=== PATIENT | female | born 1975 | race Caucasian/White ===

== ENCOUNTER 2018-08-25 16:19 | Inpatient (IN) ==
--- NOTE | 2018-08-25 17:42 | PROVIDER DOCUMENTATION ---
This chart was entered by Ashley Ross Scribe, acting as scribe for David Cates MD. HPI-Respiratory General - General Chief Complaint: Shortness of Breath Stated Complaint: SOB Time Seen by Provider: 08/25/18 17:27 Source: patient Allergies/Adverse Reactions: Patient Allergies Allergy/AdvReac Type Severity Reaction Status Date / Time acetaminophen Allergy HIVES Verified 08/25/18 17:11 [From Darvocet-N] codeine Allergy HIVES Verified 08/25/18 17:11 hydromorphone HCl * Allergy HIVES Verified 08/25/18 17:11 [From Dilaudid] meperidine HCl * Allergy HIVES Verified 08/25/18 17:11 [From Demerol] morphine Allergy HIVES Verified 08/25/18 17:11 oxycodone [From Percocet] Allergy HIVES Verified 08/25/18 17:11 propoxyphene napsylate * Allergy HIVES Verified 08/25/18 17:11 [From Darvocet-N] Home Medications: Home Medication List Medication Instructions Recorded Confirmed Last Taken Type Gabapentin 800 mg PO BID 06/10/14 08/25/18 08/25/18 History Levothyroxine [Synthroid] 100 microgm PO DAILY 06/10/14 08/25/18 08/25/18 History Clonazepam [Klonopin] 1 mg PO DAILY 06/28/18 08/25/18 08/25/18 History Hydrocodone Bit/Acetaminophen 1 tab PO QAM 06/28/18 08/25/18 08/25/18 History [Hydrocodon-Acetaminophn 10-325] Clonazepam [Klonopin] 0.5 mg PO HS 08/25/18 08/25/18 Unknown History Hydrocodone/Acetaminophen [Sylmar 0.5 tab PO QHS 08/25/18 08/25/18 Unknown History 10-325 Tablet] Omeprazole [Prilosec] 40 mg PO QPM 08/25/18 08/27/18 Unknown History - History of Present Illness-Resp Nature of Presenting Problem: 43 y/o female presents to ED with SOB, constipation, and abdominal swelling onset 2 months ago. Pt is alert and oriented. Quality of Pain: reports: none Severity in ED: reports: moderate, severe Onset/Duration: reports: other (2 months ago) Timing: reports: still present Context: reports: other Exposure: reports: unknown cause Cough Quality/Degree: reports: no cough Episode Frequency: no prior episodes Current Respiratory Medication Therapy: Initiated see nurses note Modifying Factors: improves with: nothing Associated Symptoms: reports: shortness of breath, short of breath, other (constipation, abdominal swelling) Similar Symptoms Previously?: No Recently seen or treated by another doctor?: No Review of Systems - Adult - REVIEW OF SYSTEMS - ADULT Constitutional: denies: chills, fever Eyes: reports: no symptoms reported Ears, Nose, Mouth & Throat: reports: no symptoms reported Cardiovascular: denies: chest pain, palpitations Respiratory: reports: shortness of breath. denies: cough Gastrointestinal: reports: constipation, other (abdominal swelling). denies: abdominal pain, diarrhea, nausea, vomiting Genitourinary: reports: no symptoms reported Musculoskeletal: denies: back pain, joint pain Integumentary: reports: no symptoms reported Neurological: denies: dizziness/vertigo, seizure Psychiatric: reports: no symptoms reported Endocrine: reports: no symptoms reported Hematologic/Lymphatic: reports: no symptoms reported Allergic/Immunologic: reports: no symptoms reported All Other Systems: Reviewed and Negative Past History - Adult - PAST MEDICAL HISTORY-ADULT Review of Records: reports: Old Records Reviewed, Nursing Assessment Review, Medications Reviewed Major Childhood Illnesses: reports: denies history Cardiovascular: reports: denies history Respiratory: reports: denies history Gastrointestinal: reports: liver disease (cirrhosis), other (esophageal varicies) Obstetrical/Gynecological: reports: denies history Genitourinary: reports: denies history Musculoskeletal: reports: chronic pain, intervertebral disc disease, neck/back injury, other (back issues) Neurological: reports: denies history Psychiatric: reports: anxiety Endocrine/Immune: reports: thyroid disorder (hypo) Other Conditions: reports: denies history - PRIOR SURGERIES/PROCEDURES Surgical/Procedure History: reports: appendectomy, cholecystectomy, hysterectomy , orthopedic (extremity) (carpal tunnel) - IMMUNIZATION STATUS Childhood Immunizations: See Nurse Assessment Flu Vaccine: See Nurse Assessment - FAMILY HISTORY Family History: reviewed, not pertinent - SOCIAL HISTORY Smoking: less than 1 pack/day Provider spent 3-5 mins advising pt. on dangers of tobacco.: Discussed manners to quit use, and f/u contacts for add'l counseling. Substance Use: none/never Alcohol Use Frequency: never Living Situation: family Physical Exam-General - PHYSICAL EXAM-ADULT Initial Vital Signs Reviewed: Yes - CONSTITUTIONAL General Appearance: alert, no apparent distress, obese - EYES Eyes: PERRL/EOMI, pink conjunctivae - HEAD, EARS, NOSE, MOUTH & THROAT HENMT: normocephalic/atraumatic, moist mucous membranes, normal ENT inspection - NECK Neck: non-tender, full range of motion - RESPIRATORY Respiratory: chest non-tender, lungs clear, decreased breath sounds (in R base) - CARDIOVASCULAR Cardiovascular: normal peripheral pulses, regular rate, rhythm - GASTROINTESTINAL (ABDOMEN) Abdominal Exam: normal bowel sounds, non tender, soft, distended, other (peau d'orange to abdomen; pitting edema of abdomen) - MUSCULOSKELETAL Back Exam: normal inspection, no CVA tenderness Extremity: normal range of motion, non-tender, normal gait, swelling (2+ pitting edema of bilateral lower extremities) - SKIN Integumentary: warm/dry, swelling (2+ pitting edema of bilateral lower extremities; pitting edema of abdomen), other (spider angioma to torsol; peau d'orange to abdomen) - NEUROLOGIC Neurologic: grossly normal - PSYCHIATRIC Psych/Mental Status: normal mood/affect, normal thought content, normal thought process, oriented x 3 - HEART Score HEART Score: History: Slightly Suspicious HEART Score: Age: < or = 45 Years HEART Score: Risk Factors for Atherosclerotic Disease: 1 or 2 Risk Factors Progress - PLAN OF CARE/RESULTS Progress/Plan/Lab Results: Orders Category Date Time Status Admit - [facility] Routine AdmDCTranf 08/25/18 23:15 Active Activity - Bed Rest with BRP ORDERED Care 08/25/18 23:15 Active Neurological Check Q4H Care 08/25/18 23:15 Active Saline Loc DIRECTED Care 08/25/18 23:15 Completed Vital Signs Order ORDERED Care 08/25/18 23:15 Completed Z-Document. for Tele Applied ORDERED Care 08/25/18 23:15 Completed Heart Healthy Diet Diet 08/25/18 23:[address] ABD/PELVIS W/PO AND IV CON [CT] Stat Exams 08/25/18 18:37 Completed US ABD PARACENTESIS W S/I [US] Routine Exams 08/26/18 06:00 Completed acute [FLAT/UPRIGHT ABD/1 VIEW CHEST] [RAD] Urgent Exams 08/25/18 18:22 Completed ABG [RESP] Routine Lab 08/25/18 17:39 Completed AMMONIA [CHEM] Stat Lab 08/25/18 20:22 Completed CBC WITH DIFF [HEME] DAILY Lab 08/26/18 05:55 Completed CBC WITH DIFF [HEME] DAILY Lab 08/27/18 05:41 Completed CBC WITH ELECTRONIC DIFF [HEME] Stat Lab 08/25/18 16:48 Completed COMPREHENSIVE METABOLIC PANEL [CHEM] DAILY Lab 08/26/18 05:55 Completed COMPREHENSIVE METABOLIC PANEL [CHEM] DAILY Lab 08/27/18 05:41 Completed COMPREHENSIVE METABOLIC PANEL [CHEM] DAILY Lab 08/28/18 05:57 Completed COMPREHENSIVE METABOLIC PANEL [CHEM] Stat Lab 08/25/18 16:48 Completed PTT [COAG] Stat Lab 08/25/18 16:48 Completed Furosemide [Lasix] Med 08/26/18 09:00 Discontinued 40 mg IV DAILY Lactulose Med 08/25/18 23:15 Discontinued 30 ml PO BID Levothyroxine [Synthroid] Med 08/26/18 07:00 Active 100 microgm PO DAILY@0700 Ondansetron [Zofran] Med 08/25/18 23:15 Active 4 mg IV Q4H PRN PRN Rifaximin [Xifaxan] Med 08/25/18 23:15 Discontinued 550 mg PO BID Oxygen Device Routine Oth 08/25/18 23:15 Completed Telemetry [OM.EQ] Routine Oth 08/25/18 23:15 Active EKG [EKG] Routine Ther 08/25/18 17:39 Ordered Transfer/Admit Order [TRANSFER] Routine Transfer 08/25/18 22:04 Completed Result Diagrams: 08/28/18 05:57 08/28/18 05:57 - CONSULTS/PCP/HOSPITALIST Notification #1 *Consult/PCP/Hospitalist*: Dr. Bermeo Time Discussed: 17:41 Consult Disposition: Admit Departure - Departure Date of Disposition Decision: 08/25/18 Time of Disposition Decision: 21:52 DIAGNOSIS: Ascites, Shortness of breath Disposition: ADMITTED INPATIENT 09 Certified Medical Emergency: Emergent Condition: Stable - Critical Care Note This patient required my direct & personal management of CC.: Yes Total Time (mins): 30 Critical Care Statement: This patient required my direct personal management to treat or rule out processes, the absence of which, could potentiallly result in sudden, clinically significant life or limb threatening deterioration. Attestation - Physician/ [facility] Attestation Patient care was provided by Advanced Practice Provider:: No The physician spent face to face time with patient:: Yes Advanced Practice Provider documentation review:: Supervising physician onsite and consulted in the evaluation and care of this patient. The physician did have a face to face encounter with the patient. This chart was documented by the indicated scribe, (Ashley Ross, Venessa) and accurately reflects the services I performed and decisions made by me, David Cates MD, as attested by the provider's signature.
[2018-08-25 17:44] LABS: BASO# 0.02 X1000 (0.0-0.2); BASO% 0.4 % (0.0-0.8); EOS# 0.12 X1000 (0.0-0.7); EOS% 2.1 % (0.0-10.0); HEMATOCRIT 37.2 % (37.0-47.0); HEMOGLOBIN 12.1 g/dL (12.0-16.0); IMM GRAN# 0.01 X1000 (0.0-0.04); IMM GRAN% 0.2 % (0.0-0.5); LYMPH# 1.02 X1000 (1.2-3.4); LYMPH% 18.1 % (20.5-51.1); MCH 31.5 PG (27-31); MCHC 32.5 g/dL (33-37); MCV 96.9 FL (81-99); MONO# 0.57 X1000 (0.11-0.59); MONO% 10.1 % (1.7-9.3); MPV 11.2 FL (7.4-10.4); NEUT% 69.1 % (42.2-75.2); PLT 107 X1000 (130-400); RBC 3.84 XMIL (4.2-5.4); WBC 5.64 X1000 (4.8-10.8)
[2018-08-25 17:57] LABS: BLOOD TYPE ARTERIAL; HCO3-(ACT) 27.1 mmoll (20.0-26.0); O2(CT) 16.7 mL/dL (15.0-23.0); O2HB 91.3 % (95.0-99.0); PO2(98.6) 74 mmHg (60-100); SAMPLE BLOOD; SAO2 96.9 % (95.0-100.0); pH(98.6) 7.35 (7.35-7.45)
[2018-08-25 18:00] LABS: ALLEN TEST YES; MODALITY CANNULA
[2018-08-25 18:01] LABS: PCO2(98.6) 54 mmHg (35-45)
[2018-08-25 18:26] LABS: AGAP 7; ALBUMIN 2.7 g/dL (3.5-5.0); ALKALINE PHOSPHATASE 143 U/L (32-104); BUN 13 mg/dL (8-22); CALCIUM 8.2 mg/dL (8.8-10.2); CHLORIDE 102 mmol/L (98-107); COSMO 275; CREATININE 0.4 mg/dL (0.5-0.9); ESTIMATED GFR > 60; GLUCOSE 158 mg/dL (70-104); GOT 42 U/L (10-30); GPT 19 U/L (10-36); POTASSIUM 3.8 mmol/L (3.5-5.1); SODIUM 136 mmol/L (136-145); TCO2 27 mmol/L (25-35)
--- NOTE | 2018-08-25 20:15 | Diag Imaging Result Doc PS360 ---
EXAM: FLAT/UPRIGHT ABD/1 VIEW CHEST INDICATION: swelling, dyspnea TECHNIQUE: 4 views COMPARISON: 06/28/2018 FINDINGS: There are nonspecific bowel gas and stool patterns. There is no obstructive bowel pattern. There is no evidence of large volume free abdominal gas. There is no evidence of organomegaly. Lung volumes are very low similar to the previous study. There is subsegmental atelectasis at both lung bases. There is no well-defined pleural fluid collection or pneumothorax. Cardiac silhouette is unremarkable. Central vasculature is mildly prominent which may be due to vascular crowding from poor inspiration versus mild pulmonary venous congestion. IMPRESSION: 1.Nonspecific abdomen. 2.Very low lung volumes with bibasilar atelectasis and mild pulmonary venous congestion versus vascular crowding from the low lung volumes. Electronically signed by Miki Pierre 08/25/2018 8:13 PM
--- NOTE | 2018-08-25 21:56 | Diag Imaging Result Doc PS360 ---
EXAM: CT ABD/PELVIS W/PO AND IV CON INDICATION: abdomen pain TECHNIQUE: This exam was performed using automated exposure control, adjustment of mA or kV according to patient size, and/or use of iterative reconstruction technique. COMPARISON: None. FINDINGS: There is atelectasis at both lung bases, more prominent on the right. There is large volume ascites. There has been a prior cholecystectomy. The liver is extremely heterogeneous and exhibits a very nodular contour indicating cirrhosis. There are numerous ill-defined hypodense nodular foci throughout the liver parenchyma. This may simply be due to the cirrhosis with multiple regenerative nodules. Continued surveillance is recommended, however. Contrast-enhanced MRI may be helpful. The spleen is enlarged measuring up to 16 cm in the greatest axial dimension. There are somewhat prominent varices at the splenic hilum consistent with portal hypertension. The pancreas, adrenal glands, kidneys, and urinary bladder are grossly unremarkable. There has been a prior hysterectomy. There has reportedly been a prior appendectomy. The remainder of the GI tract is essentially unremarkable. There is degenerative disc disease at L5-S1. The bony structures are grossly intact. IMPRESSION: 1.Large volume ascites. 2.Cirrhotic liver. Please see above discussion. 3.Splenomegaly. 4.Atelectasis at the lung bases. Electronically signed by Miki Pierre 08/25/2018 9:53 PM
[2018-08-25] MEDS ORDERED: ZOFRAN IV PRN (23:15)
[2018-08-25] MEDS: LACTULOSE PO SCH (23:45)
[2018-08-25] MEDS: XIFAXAN PO SCH (23:45)
[2018-08-26] MEDS: SYNTHROID PO SCH (06:02)
[2018-08-26 06:51] LABS: AGAP 4; ALBUMIN 2.3 g/dL (3.5-5.0); ALKALINE PHOSPHATASE 139 U/L (32-104); BUN 11 mg/dL (8-22); CHLORIDE 104 mmol/L (98-107); COSMO 274; CREATININE 0.4 mg/dL (0.5-0.9); ESTIMATED GFR > 60; GLUCOSE 142 mg/dL (70-104); GOT 38 U/L (10-30); GPT 16 U/L (10-36); POTASSIUM 4.2 mmol/L (3.5-5.1); SODIUM 136 mmol/L (136-145); TCO2 28 mmol/L (25-35); TOTAL PROTEIN 6.3 g/dL (6.3-8.3)
[2018-08-26 07:32] LABS: BASO# 0.01 X1000 (0.0-0.2); BASO% 0.2 % (0.0-0.8); EOS# 0.13 X1000 (0.0-0.7); EOS% 3.2 % (0.0-10.0); HEMATOCRIT 34.9 % (37.0-47.0); HEMOGLOBIN 11.2 g/dL (12.0-16.0); IMM GRAN# 0.01 X1000 (0.0-0.04); IMM GRAN% 0.2 % (0.0-0.5); LYMPH# 0.74 X1000 (1.2-3.4); MCH 31.2 PG (27-31); MCHC 32.1 g/dL (33-37); MCV 97.2 FL (81-99); MONO# 0.61 X1000 (0.11-0.59); MONO% 14.8 % (1.7-9.3); NEUT# 2.62 X1000 (1.4-6.5); NEUT% 63.6 % (42.2-75.2); PLT 82 X1000 (130-400); RBC 3.59 XMIL (4.2-5.4); RDW 17.7 % (11.5-14.5); WBC 4.12 X1000 (4.8-10.8)
[2018-08-26 07:59] LABS: OCCULT BLOOD 1 POSITIVE (NEGATIVE)
[2018-08-26] MEDS ORDERED: LASIX IV SCH (09:00)
[2018-08-26] MEDS: XIFAXAN PO SCH (09:12)
[2018-08-26] MEDS: LACTULOSE PO SCH (09:13)
[2018-08-26] MEDS ORDERED: ALDACTONE PO SCH (12:15)
[2018-08-26] MEDS ORDERED: OXY IR PO PRN (12:21)
[2018-08-26] MEDS ORDERED: MORPHINE IR PO PRN (12:26)
--- NOTE | 2018-08-26 12:57 | Diag Imaging Result Doc PS360 ---
EXAM: US ABD PARACENTESIS W S/I HISTORY: ascites TECHNIQUE: Localization for a paracentesis COMPARISON: None. FINDINGS: Abdominal ascites present in each of the four quadrants. The largest pocket was in the right lower quadrant. This area was marked for a paracentesis to be performed by the referring physician. Electronically signed by Phil Tan 08/26/2018 12:54 PM
[2018-08-26 13:10] LABS: INR 1.35; PROTIME 17.4 Seconds (11.0-16.0)
[2018-08-26] MEDS: NORCO-7.5 PO PRN (13:52)
[2018-08-26] MEDS ORDERED: XYLOCAINE-MPF 2% ONE (14:34)
[2018-08-26] MEDS ORDERED: VITAMIN K SUBQ ONE (15:23)
[2018-08-26] MEDS ORDERED: NUBAIN IV PRN (15:38)
--- NOTE | 2018-08-26 16:46 | Diag Imaging Result Doc PS360 ---
EXAM: CHEST-PORTABLE HISTORY: dyspnea TECHNIQUE: Chest single view COMPARISON: 08/25/2018 FINDINGS: Poor inspiratory effort. No cardiomegaly. There are increased interstitial markings in the lower lungs. Questionable trace pleural fluid. IMPRESSION: No interval improvement. Electronically signed by Phil Tan 08/26/2018 4:43 PM
--- NOTE | 2018-08-26 18:56 | PROGRESS NOTE ---
DATE: 08/26/2018 SUBJECTIVE: Patient has no major complaints. OBJECTIVE: Vital Signs: Blood pressure is 113/58, heart rate of 89, respiratory rate of 18, temperature 99.2, 98 percent on 3 L. General: She seems more awake, alert, not as lethargic. Cardiovascular: Regular rate and rhythm. Pulmonary: Diminished at bases. GI: Soft, nontender, nondistended. Bowel sounds are positive. LABORATORY DATA: Hemoglobin and hematocrit has dropped a little bit to a level of 11 and 34, platelets of 82. T bilirubin has come down to 2. I do not have a repeat. INR is 1.35. She was heme positive unfortunately. PROBLEM LIST: 1. Gastrointestinal bleed. She did develop some hematochezia yesterday. It was blood streaked and not bloody. Could be various things. She does have a history of varices, so I am going to transfer her for GI evaluation, and follow. 2. Ascites. Attempted bedside paracentesis and just could not access fluid despite ultrasound guidance. Will repeat with Radiology. We will continue diuretics. She is on Lasix and Aldactone. We will follow. 3. Hepatic encephalopathy. Appears to be improved. Continue lactulose and Rifaximin. 4. Hypothyroidism. Continue Synthroid and follow. 5. Decompensated cirrhosis. We will get a gastrointestinal evaluation and monitor closely. cc: Kirby Bermeo MD
--- NOTE | 2018-08-26 19:54 | HISTORY AND PHYSICAL ---
HISTORY OF PRESENT ILLNESS: The patient was evaluated in the ER; I saw her there. When she first came in her main complaint was just weakness. She was actually driving from [facility] to her mother who lives here more locally, but she just could not tolerate it and came in. Reportedly she says she has not had a bowel movement for weeks. She also reports shortness of breath. No bleeding. No hematemesis. No melena. No hematochezia. Swelling she says is months, at least 2 months, maybe more. She does have a known history of cirrhosis. She is unsure uncertain what the mechanism is, and varices. She has seen doctors at [facility] and she has seen doctors in the [facility]. Her workup in the ER revealed likely ascites, although she is obese and it is a little difficult to tell if it is related to that. She was lethargic. She had hyperammonemia, and patient was somewhat lethargic. She was admitted for decompensated CHF. Her workup ended up showing ascites, elevated ammonia in any case. PAST MEDICAL HISTORY: 1. Neuropathy. 2. Cirrhosis unspecified. 3. Hypothyroidism. PAST SURGICAL HISTORY: I do not think she has had any major surgeries, other than she has had a hysterectomy. FAMILY HISTORY: Father has had colon cancer. SOCIAL HISTORY: She still does smoke about half a pack a day. No alcohol. No drugs. ALLERGIES: Codeine, but also acetaminophen, also hydromorphone, morphine, Demerol, propoxyphene. Now when questioned she said she has had highs, but she has also said she had just nausea associated with those. REVIEW OF SYSTEMS: She reports a 60 pound weight gain in the last several months. Again, no bleeding. Otherwise, negative times a 10 point review of systems. PHYSICAL EXAMINATION: VITAL SIGNS: Blood pressure was when I saw her yesterday evening was 120/69, heart rate 78, respiratory rate of 28, temperature 97.6 degrees, satting 87% on room air. CARDIOVASCULAR: Regular rate and rhythm. PULMONARY: Bilateral breath sounds/ clear to auscultation. GI: Soft, nontender, nondistended. Bowel sounds are positive. GENERAL: A well-developed female in mild respiratory distress. HEENT: Sclerae are anicteric. Pupils equal, round, reactive to light. Extraocular movements were intact. Ear, nose and throat exam reveals moist mucous membranes. NECK: Exam was supple. CARDIOVASCULAR EXAM: Tachy. PULMONARY: Diminished at the bases. GI: She is soft, protuberant, nontender. Bowel sounds positive, but diminished. EXTREMITY EXAM: Trace peripheral edema. NEUROLOGICAL EXAM: She was lethargic. No asterixis noted. Nonfocal exam, but very slow to respond, almost like she was inebriated, but she is not inebriated or at least did not feel she was inebriated, but I think she had a metabolic encephalopathy associated with it. SKIN: She had numerous spider angiomata all along her upper extremities and chest LABORATORY DATA: Her hemoglobin and hematocrit was 12 and 37, white count 5.6, platelets 107. Total bilirubin was 3.6, AST and ALT of 42 and 19. Ammonia 52. PROBLEM LIST: This is a 43-year-old female presenting with decompensated cirrhosis, evidence of symptomatic ascites, and hepatic encephalopathy. Workup in the ER: 1. Ascites. We will try to pursue an ultrasound-guided paracentesis and get fluid for analysis and therapeutic removal. 2. Hepatic encephalopathy. We will initiate lactulose and Xifaxan, and monitor her ammonia and clinical improvement. 3. Decompensated cirrhosis. At this point, she is at least Child's Class B. Her INR is only 1.3. Her albumin is 2.7. Her total bilirubin is 3.6, so we will continue to monitor. We will need to set her up urgently with Gastroenterology. I am going to repeat her cirrhosis workup because we do not really have clear information, although I am suspicious this is related to nonalcoholic steatohepatitis 4. Disposition: Pending her clinical course. cc: Kirby Bermeo MD
[2018-08-26 20:42] LABS: URINE SOURCE CATH
[2018-08-26 20:46] LABS: BILIRUBIN URINE NEGATIVE (NEGATIVE); BLOOD URINE TRACE (NEGATIVE); COLOR YELLOW; GLUCOSE URINE NEGATIVE (NEGATIVE); KETONE URINE NEGATIVE (NEGATIVE); LEUKOCYTES URINE MODERATE (NEGATIVE); NITRITE URINE NEGATIVE (NEGATIVE); PROTEIN URINE TRACE mg/dL (NEGATIVE); SP GRAVITY URINE 1.027; TURBIDITY URINE CLEAR (CLEAR); UROBILINOGEN URINE NORMAL (NORMAL)
[2018-08-26 20:57] LABS: UR EPITHELIAL CELLS <10 /HPF (<10); URINE BACTERIA NEGATIVE /HPF; URINE RBC <10 /HPF (<10)
[2018-08-26] MEDS ORDERED: KLONOPIN PO SCH (21:00)
[2018-08-26] MEDS ORDERED: NORCO-10 PO SCH (21:00)
[2018-08-26 21:08] LABS: URINE CASTS NONE SEEN; URINE CRYSTALS CA OXALATE PRESENT; URINE SMALL ROUND CELLS NONE SEEN; URINE YEAST PRESENT
[2018-08-26] MEDS: PRILOSEC PO SCH (21:15)
[2018-08-26] MEDS: NEURONTIN PO SCH (21:17)
[2018-08-26 21:24] LABS: UR AMPHETAMINES QUAL NONE DETECTED (NONE DETECT); UR BARBITUATES QUAL NONE DETECTED (NONE DETECT); UR BENZODIAZEPIN QUAL PRESUMPTIVE POSITIVE (NONE DETECT); UR CANNABINOIDS QUAL NONE DETECTED (NONE DETECT); UR COCAINE QUAL NONE DETECTED (NONE DETECT); UR OPIATES QUAL PRESUMPTIVE POSITIVE (NONE DETECT); UR PCP QUAL NONE DETECTED (NONE DETECT)
[2018-08-26 21:25] LABS: UR METHADONE QUAL NONE DETECTED (NONE DETECT); UR OXYCODONE QUAL NONE DETECTED (NONE DETECT)
[2018-08-26] MEDS: DUONEB (A & A) INH SCH (21:30)
[2018-08-26] MEDS: KLONOPIN PO SCH (21:40)
[2018-08-27] MEDS: NORCO-7.5 PO PRN ×2 (03:49→11:26)
[2018-08-27] MEDS: SYNTHROID PO SCH (06:11)
[2018-08-27 06:21] LABS: BASO# 0.01 X1000 (0.0-0.2); BASO% 0.2 % (0.0-0.8); EOS# 0.11 X1000 (0.0-0.7); EOS% 2.5 % (0.0-10.0); HEMATOCRIT 36.8 % (37.0-47.0); HEMOGLOBIN 11.6 g/dL (12.0-16.0); LYMPH# 0.75 X1000 (1.2-3.4); LYMPH% 16.9 % (20.5-51.1); MCHC 31.5 g/dL (33-37); MCV 98.4 FL (81-99); MONO# 0.59 X1000 (0.11-0.59); MONO% 13.3 % (1.7-9.3); MPV 11.3 FL (7.4-10.4); NEUT# 2.97 X1000 (1.4-6.5); NEUT% 67.1 % (42.2-75.2); PLT 83 X1000 (130-400); RBC 3.74 XMIL (4.2-5.4); RDW 17.9 % (11.5-14.5); WBC 4.43 X1000 (4.8-10.8)
[2018-08-27 06:29] LABS: AGAP 4; ALB/GLOB RATIO 0.6; ALBUMIN 2.4 g/dL (3.5-5.0); ALKALINE PHOSPHATASE 140 U/L (32-104); BUN 12 mg/dL (8-22); CALCIUM 8.3 mg/dL (8.8-10.2); CHLORIDE 103 mmol/L (98-107); COSMO 277; CREATININE 0.6 mg/dL (0.5-0.9); ESTIMATED GFR > 60; GLUCOSE 125 mg/dL (70-104); GOT 42 U/L (10-30); GPT 17 U/L (10-36); SODIUM 138 mmol/L (136-145); TCO2 31 mmol/L (25-35); TOTAL BILIRUBIN 1.84 mg/dL (0.20-1.00); TOTAL PROTEIN 6.5 g/dL (6.3-8.3)
[2018-08-27 06:47] LABS: TSH 2.05 uIUmL (0.27-4.20)
[2018-08-27] MEDS: MIRALAX PO SCH (09:26)
[2018-08-27] MEDS: ALDACTONE PO SCH (09:26)
[2018-08-27] MEDS: NEURONTIN PO SCH ×3 (09:26→21:37)
[2018-08-27] MEDS: LASIX PO SCH (09:26)
[2018-08-27] MEDS: PRILOSEC PO SCH ×2 (09:26→21:36)
[2018-08-27] MEDS: DUONEB (A & A) INH SCH ×3 (09:46→21:10)
--- NOTE | 2018-08-27 10:54 | GASTROENTEROLOGY CONSULTATION ---
DATE: 08/27/2018 REASON FOR CONSULTATION: Cirrhosis with ascites. HISTORY OF PRESENT ILLNESS: Ms. Rupa Sheppard is a 43-year-old woman with past medical history of morbid obesity, hypothyroidism, neuropathy, degenerative joint disease with chronic back pain on pain medications, and cirrhosis from probable ANGELA complicated with bleeding varices requiring banding in March 2017 on Nadolol who presented to outside hospital with generalized weakness, abdominal distention and 60-pound weight gain. The patient reports that for about the last month she has noticed that her abdomen has become distended, which has prevented her from wearing her clothing. She says her weight has increased from 200 to 260 lbs over this period. She complains of associated shortness of breath, dyspnea on exertion, early satiety, constipation, and lower extremity edema. that she has gained about 60 pounds from 200 pounds at baseline 260 currently. She denies any jaundice or confusion. She does have some mild pleuritic chest pain. She is not on any blood thinners or NSAIDs. Her constipation at home has been treated with stool softeners, Fleet enemas and suppositories with minimal relief. She was previously followed by voip engineer at [facility], which she has not seen for years. She has a family history notable for colon cancer in her father. Her last colonoscopy was approximately 5 years ago. She denies any rectal bleeding or prior polyps in the past. ROS: as per HPI, otherwise 12 point ROS is negative. PAST MEDICAL HISTORY: Includes as per history of present illness and anxiety and depression. PAST SURGICAL HISTORY: She has had a hysterectomy, carpal tunnel surgery, cholecystectomy, and appendectomy. FAMILY HISTORY: Notable for colon cancer in father. She has paternal uncles with alcoholic cirrhosis. No first-degree relatives with chronic liver disease. SOCIAL HISTORY: She smokes approximately 1 pack of cigarettes per week. Previously, she was a 1 pack per day smoker. No history of significant alcohol use or drug use. She lives with her 19- year-old daughter and her brother. MEDICATIONS: Include levothyroxine, gabapentin, Scipio, Klonopin, omeprazole 40 mg daily and Nadolol. ALLERGIES: Acetaminophen, codeine, Demerol, Darvocet, morphine, oxycodone, hydromorphone. PHYSICAL EXAMINATION: Vital Signs: Temperature is 98.5 degrees, heart rate of 97, respiratory rate 18, blood pressure 112/65, O2 saturation 93% on 4 L nasal cannula. General: The patient is awake, alert, no acute distress. HEENT: Sclerae anicteric. Moist mucous membranes. Extraocular motor intact. Neck: Stick supple. No JVD or lymphadenopathy. Cardiac: Regular rate and rhythm. No murmurs, rubs, or gallops. Lungs: Clear to auscultation bilaterally. No wheezing, crackles, or rhonchi. Cardiac: Regular rate and rhythm. No murmurs, rubs, or gallops. Abdomen: Obese, soft, nontender, distended, difficult to appreciate ascites given habitus. She has a large pannus. Extremities: With a minimal edema. No clubbing, cyanosis. Skin: Warm and well perfused. No jaundice. Neurologic: Nonfocal. She is A O x3, no asterixis. LABORATORY DATA: White count of 4.4, hemoglobin of 11.6 on baseline, MCV is 98.4, platelets of 83,000. INR is 1.35. Sodium 138, potassium 4.0, chloride of 103, bicarb 31, BUN of 12, creatinine 0.6, glucose of 125. Ferritins 46, total bilirubin 1.8 from 3.6 on 08/25. AST of 42, ALT of 17, alkaline phosphatase of 140, ammonia of 52 on 08/25, total protein of 6.5, albumin of 2.4, TSH of 2.0. UA on 08/26 showed moderate leukocytes, white blood cells from 10 to 20. U tox was positive for opiates and benzos likely secondary to her home medications. Acute hepatitis panel was negative. FABRICIO is negative. Alpha 1 antitrypsin and ceruloplasmin normal. Ferritin is normal. Iron studies are normal. IMAGING: CT of the abdomen and pelvis on 08/25 shows large volume ascites, cirrhotic liver, splenomegaly, and atelectasis of the lung bases. Attempted paracentesis was done on 08/26, which was unsuccessful. Chest x-ray shows increased interstitial markings in the lower lungs. Question trace pleural effusion. No cardiomegaly, poor inspiratory effort. ASSESSMENT AND PLAN: 1. Ms. Rupa Sheppard is a 43-year-old woman with past medical history of morbid obesity, hypothyroidism, chronic pain on opiates, probable ANGELA cirrhosis complicated with bleeding varices requiring banding and Nadolol who presents with 1 month of worsening ascites. Her LFTs have improved since admission. Chronic liver disease workup is essentially unremarkable. She has not experienced hepatic encephalopathy in the past. She is not having any overt bleeding. She does have a family history notable for colorectal cancer. Her last EGD was in 2018 which required banding. I have started her on 40 mg of Lasix and 100 mg of spironolactone for her ascites. We will have radiology attempt repeat paracentesis tomorrow. No indication for lactulose or rifaximin. She has never had a history of hepatic encephalopathy. There is no evidence of hepatoma on imaging. She will need ultrasound every 6 months for ACC screening. I recommend the patient have outpatient esophagogastroduodenoscopy and colonoscopy for per banding protocol and high risk colon cancer screening given history family history. 2. Hypothyroidism continue home levothyroxine. 3. Chronic pain syndrome. Continue home medications. Avoid sedating mediations if possible. 4. Constipation. I have started patient on MiraLAX once daily. 5. Anemia. Iron studies are normal. The patient is not having any overt bleeding. Positive Hemoccult is unreliable for acute gastrointestinal bleed, particularly in the patient with cirrhosis. 6. Recommend trending her liver function tests and INR daily. No indication for trending ammonia. Thank you for this consult. We will follow with you. Please call with any questions or concerns. [facility]ENTER[facility]mar
[2018-08-27] MEDS: KLONOPIN PO SCH ×2 (11:26→21:42)
--- NOTE | 2018-08-27 11:30 | PROGRESS NOTE ---
DATE: 08/27/2018 SUBJECTIVE: The patient reports no signs of GI bleeding like hematemesis, melena, or hematochezia. The patient complains of a moderate headache and that is because she was not taking her pain medication recently. Definitely, she looks more worried about getting her Klonopin and pain medication than her possible GI bleeding and ascites. OBJECTIVE: Vital Signs: Temperature 98.5 degrees, heart rate 95, respiratory rate 16, blood pressure 112/65, O2 saturation 96% on 4 L nasal cannula. General Examination: This is an extremely morbidly obese, 43-year-old, female lying in bed, in no acute distress. Cardiovascular Examination: S1 and S2 heard. No murmurs, gallops, or rubs. Regular rate and rhythm. Respiratory Examination: Decreased breath sounds globally that is most likely related to body habitus. The patient is not using any accessory muscles or having work of breathing. Abdomen: Soft. A little bit distended. Nontender to palpation. Bowel sounds present. No organomegaly. Extremities: No clubbing or cyanosis. Mild peripheral edema. Neurological Examination: The patient is alert and oriented x3. Moves 4 extremities. Laboratory Data: White cell count 4.43, hemoglobin 11.6, hematocrit 36.8, platelets 83,000. Normal BMP. Total bilirubin is 1.94 with AST 42 and ALT 17. ASSESSMENT/PLAN: 1. Gastrointestinal bleeding. There was a report that she had developed hematochezia yesterday but the labs from today did not show any major changes. Actually, the hemoglobin has increased today. That is the reason why this patient was transferred from [facility] to here. Also, she has a history of esophageal varices so, at this point, we will wait for evaluation from Dr. Brady from gastroenterology to see what we can do for this patient. 2. Ascites. They tried to do a paracentesis at bedside but it was not possible to do. At this point, we are going to try ultrasound-guided paracentesis as per interventional radiologist. We will continue with Lasix and Aldactone. 3. Hepatic encephalopathy. Patient is on lactulose and rifaximin. We will continue with the same management. 4. Hypothyroidism. The patient will continue with Synthroid. 5. Anxiety disorder. The patient is on Klonopin. The patient requests to be restarted on medication. 6. Disposition. We will continue to monitor this patient closely. cc: Saurabh Cordova MD MTDD
[2018-08-27] MEDS ORDERED: NEOSPORIN OINTMENT TUBE TOP ONE (23:58)
[2018-08-28] MEDS: NORCO-7.5 PO PRN ×3 (00:03→21:57)
[2018-08-28] MEDS: SYNTHROID PO SCH (06:27)
[2018-08-28 06:37] LABS: INR 1.37
[2018-08-28 06:43] LABS: BASO# 0.02 X1000 (0.0-0.2); BASO% 0.5 % (0.0-0.8); EOS% 2.4 % (0.0-10.0); HEMATOCRIT 35.7 % (37.0-47.0); HEMOGLOBIN 11.3 g/dL (12.0-16.0); LYMPH# 0.73 X1000 (1.2-3.4); LYMPH% 17.2 % (20.5-51.1); MCH 31.3 PG (27-31); MCHC 31.7 g/dL (33-37); MCV 98.9 FL (81-99); MONO# 0.39 X1000 (0.11-0.59); MONO% 9.2 % (1.7-9.3); MPV 10.5 FL (7.4-10.4); NEUT% 70.7 % (42.2-75.2); PLT 67 X1000 (130-400); RBC 3.61 XMIL (4.2-5.4); RDW 17.5 % (11.5-14.5); WBC 4.24 X1000 (4.8-10.8)
[2018-08-28 06:56] LABS: AGAP 6; ALB/GLOB RATIO 0.6; ALBUMIN 2.4 g/dL (3.5-5.0); ALKALINE PHOSPHATASE 129 U/L (32-104); BUN 11 mg/dL (8-22); CALCIUM 8.5 mg/dL (8.8-10.2); CHLORIDE 102 mmol/L (98-107); COSMO 276; CREATININE 0.5 mg/dL (0.5-0.9); ESTIMATED GFR > 60; GLUCOSE 118 mg/dL (70-104); GOT 44 U/L (10-30); GPT 17 U/L (10-36); POTASSIUM 4.3 mmol/L (3.5-5.1); SODIUM 138 mmol/L (136-145); TCO2 30 mmol/L (25-35); TOTAL BILIRUBIN 2.43 mg/dL (0.20-1.00); TOTAL PROTEIN 6.3 g/dL (6.3-8.3)
[2018-08-28 09:19] LABS: HEPATITIS PROFILE ACUTE SEE COMMENTS
[2018-08-28] MEDS: MIRALAX PO SCH ×2 (09:45→13:57)
[2018-08-28] MEDS: LASIX PO SCH (09:45)
[2018-08-28] MEDS: NEURONTIN PO SCH ×2 (09:45→21:57)
[2018-08-28] MEDS: ALDACTONE PO SCH (09:45)
[2018-08-28] MEDS: PRILOSEC PO SCH ×3 (09:45→22:00)
--- NOTE | 2018-08-28 09:45 | Diag Imaging Result Doc PS360 ---
US ABD PARACENTESIS W S/I - 08/28/2018 INDICATION: ascites COMPARISON: 08/26/2018 FINDINGS: The risks and benefits of the procedure were discussed with the patient. All questions were answered. Written and verbal consent was obtained. Ultrasound scanning demonstrated ascites. Overlying skin was prepped and draped in sterile fashion. Local anesthesia was achieved with injection of 10 cc 1% lidocaine. The paracentesis catheter was advanced until the return of ascites fluid. 4 L of yesenia serous fluid was aspirated. The catheter was withdrawn intact. There were no known complications. IMPRESSION: Technically successful ultrasound-guided paracentesis with no known complications. Electronically signed by Miki Pierre 08/28/2018 9:43 AM
[2018-08-28] MEDS: KLONOPIN PO SCH ×2 (09:55→21:58)
[2018-08-28] MEDS: NICODERM PATCH TD SCH (10:50)
[2018-08-28] MEDS: DUONEB (A & A) INH SCH ×3 (11:01→21:41)
--- NOTE | 2018-08-28 11:46 | PROGRESS NOTE ---
DATE: 08/28/2018 SUBJECTIVE: The patient denies any signs of GI bleeding. No hematemesis, melena, or hematochezia. OBJECTIVE: Vital Signs: Temperature 98.4 degrees, heart rate 100, respiratory rate 22, blood pressure 119/76, O2 saturation 95% on 4 L nasal cannula. General: This is an extremely morbidly obese, 43-year-old female lying in bed, in no acute distress. Looking older than her stated age. Cardiovascular: S1, S2 heard. No murmurs, gallops, or rubs. Regular rate and rhythm. Respiratory: Decreased breath sounds globally, most likely related to body habitus but the patient is not using any accessory muscles or having work of breathing. Abdomen: Soft, a little bit distended. Nontender to palpation. Bowel sounds present. No organomegaly. Extremities: No clubbing, cyanosis. Mild peripheral edema. Neurological: Patient alert and oriented x3. Moves 4 extremities. LABORATORY DATA: White cell count 4.24, hemoglobin 11.3, hematocrit 35.7, platelets 67,000. BMP shows calcium 8.5 with total bilirubin 2.43, AST 44, ALT 17. ASSESSMENT/PLAN: 1. Gastrointestinal bleeding. That was one of the reasons why this patient was transferred to [facility]. Apparently, there was a report that she has developed hematochezia but she denies any signs of gastrointestinal bleeding. Hemoglobin has been stable so far for the last 3 days with 11.2, 11.6, and 11.3. Gastroenterology has evaluated this patient and they are not planning to do any endoscopy. She has history of esophageal varices though. 2. Ascites. Ultrasound-guided paracentesis was performed today and so far has removed 4 L of ascitic fluid. We are waiting for results of ascitic fluid status to rule out any possible SBP. 3. Hepatic encephalopathy. According to Gastroenterology, she does not look to be encephalopathic. So, we will continue with the lactulose but rifaximin has been stopped by Gastroenterology. We will continue to monitor this patient closely. 4. Hypothyroidism. Will continue with Synthroid. 5. Anxiety disorder. Patient is on Klonopin. 6. Non alcoholic liver cirrhosis. Because of her age and comorbidities, as per patient, Gastroenterology wanted to send her to [facility] for further workup for liver transplant as outpatient. I think it is reasonable. We will follow recommendations from Gastroenterology. cc: Saurabh Cordova MD MTDDelmar
[2018-08-28 12:20] LABS: BODY FLUID SOURCE PERITONEAL FLUID; WBC BF 232 /cumm
[2018-08-28 12:21] LABS: TOTAL PROT BODY FLUID 0.7 g/dL
[2018-08-28 12:26] LABS: ALBUMIN BODY FLUID 0.4 g/dL; AMYLASE BODY FLUID 5 U/L
[2018-08-28 12:40] LABS: MONOS 66 %; POLYS 34 %
[2018-08-28] MEDS: LACTULOSE PO SCH (21:59)
--- NOTE | 2018-08-29 03:55 | GASTROENTEROLOGY PROGRESS NOTE ---
DATE: 08/28/2018 SUBJECTIVE: The patient is resting in bed. Her family is present at bedside. The patient denies any nausea, vomiting. Denies any fevers, rigors, chills. She complains of some soreness in the abdomen. She had a recent paracentesis, and about 4 L of yesenia serous fluid was aspirated. The patient denies any fevers, rigors, or chills. OBJECTIVE: Vital Signs: Temperature 98.4 degrees, pulse 100, respiratory rate 22, blood pressure 119/63, saturating 90% on nasal cannula. Body weight of 255 pounds 2 ounces. BMI of 43.1 kg. General: The patient is morbidly obese, lying in bed in no acute distress. HEENT: Mild pallor. Mild icterus. Pupils are equal, reactive to light and accommodation. She has a wound on her forehead. Neck: Supple. Abdomen: Obese. Mild discomfort in the epigastrium. No rebound. No guarding. Extremities: No cyanosis, clubbing. Neurologic: Alert, awake, oriented x3. LABORATORY DATA: Hemoglobin and hematocrit are 11.3 and 35, white count of 4.24, platelet count of 67. Sodium 138, potassium 4.3, chloride 102, bicarb of 39.6, BUN of 11, creatinine 0.5, glucose of 118, calcium 8.5. Total bilirubin is 2.43, AST 44, ALT 17, alkaline phosphatase 139, total protein 6.2, albumin of 2.4. Hepatitis panel is nonreactive. Stool culture was positive. Urine culture showing no growth. IMPRESSION AND PLAN: 1. Nonalcoholic steatohepatitis cirrhosis likely. Will follow up on the liver enzymes. Will follow up on the chronic liver disease workup. 2. Ascites. She will continue a low-sodium diet, less than 2 grams in 24 hours. Strict intake and output, and fluid restriction of less than 1.5 liters in 24 hours. Continue on Lasix 40 mg daily and Aldactone 100 mg once daily. Follow up on the ascitic fluid studies, which have been ordered. 3. Obesity. Patient counseled to lose weight. 4. Hypothyroidism. She is on levothyroxine. 5. Chronic pain syndrome. She will continue to avoid excessive narcotics. 6. Hepatic encephalopathy. Will continue to watch for now. 7. Anemia. Continue to watch for now. Her Hemoccult was positive. 8. Thrombocytopenia. Again, continue to watch for now. 9. CT scan on admission showed evidence of large-volume ascites, cirrhotic liver, and splenomegaly that all could be secondary to chronic liver disease. The patient was seen at [facility] about 10 years ago. She was diagnosed with liver disease almost 10 years ago. I encouraged her to keep her followup with [facility] for further management. 10. Gastrointestinal prophylaxis. Proton pump inhibitors. 11. Smoker. Patient counseled to quit smoking. She will continue nicotine patch. 12. Constipation. She will continue MiraLAX once daily. 13. Mildly elevated ammonia. Will start her on lactulose twice daily, and hold for more than 3 BMs in 24 hours. Will follow along. The above plans were discussed with the patient and family, and all questions were answered. Please call with any further questions. cc: Angus Weaver MD MTDD
[2018-08-29] MEDS: NORCO-7.5 PO PRN ×3 (06:52→18:49)
[2018-08-29] MEDS: SYNTHROID PO SCH (06:52)
[2018-08-29 07:02] LABS: CHLORIDE 97 mmol/L (98-107); POTASSIUM 4.1 mmol/L (3.5-5.1); SODIUM 137 mmol/L (136-145)
[2018-08-29 07:03] LABS: AGAP 7; ALB/GLOB RATIO 0.6; ALBUMIN 2.5 g/dL (3.5-5.0); ALKALINE PHOSPHATASE 147 U/L (32-104); BUN 10 mg/dL (8-22); CALCIUM 8.5 mg/dL (8.8-10.2); COSMO 274; CREATININE 0.5 mg/dL (0.5-0.9); ESTIMATED GFR > 60; GLUCOSE 113 mg/dL (70-104); GOT 54 U/L (10-30); GPT 21 U/L (10-36); TCO2 33 mmol/L (25-35); TOTAL BILIRUBIN 2.49 mg/dL (0.20-1.00); TOTAL PROTEIN 6.7 g/dL (6.3-8.3)
[2018-08-29 07:04] LABS: BASO# 0.01 X1000 (0.0-0.2); BASO% 0.2 % (0.0-0.8); EOS# 0.09 X1000 (0.0-0.7); HEMATOCRIT 39.1 % (37.0-47.0); HEMOGLOBIN 12.6 g/dL (12.0-16.0); LYMPH# 0.74 X1000 (1.2-3.4); LYMPH% 16.7 % (20.5-51.1); MCH 31.4 PG (27-31); MCHC 32.2 g/dL (33-37); MCV 97.5 FL (81-99); MONO# 0.48 X1000 (0.11-0.59); MONO% 10.8 % (1.7-9.3); MPV 10.7 FL (7.4-10.4); NEUT# 3.12 X1000 (1.4-6.5); NEUT% 70.3 % (42.2-75.2); PLT 73 X1000 (130-400); RBC 4.01 XMIL (4.2-5.4); RDW 17.8 % (11.5-14.5); WBC 4.44 X1000 (4.8-10.8)
[2018-08-29 07:06] LABS: INR 1.31; PROTIME 17.3 Seconds (11.0-16.0)
[2018-08-29] MEDS: PRILOSEC PO SCH ×2 (08:35→22:41)
[2018-08-29] MEDS: NEURONTIN PO SCH ×2 (08:35→22:40)
[2018-08-29] MEDS: ALDACTONE PO SCH (08:35)
[2018-08-29] MEDS: LACTULOSE PO SCH ×4 (08:35→22:44)
[2018-08-29] MEDS: LASIX PO SCH (08:35)
[2018-08-29] MEDS: NICODERM PATCH TD SCH (08:35)
[2018-08-29] MEDS: MIRALAX PO SCH ×2 (08:35→12:13)
[2018-08-29] MEDS: KLONOPIN PO SCH ×2 (08:46→22:40)
[2018-08-29] MEDS ORDERED: NICODERM PATCH TD SCH (09:00)
[2018-08-29] MEDS: DUONEB (A & A) INH SCH ×3 (11:44→22:19)
[2018-08-29] MEDS ORDERED: ALBUMIN 25% IV ONE (11:50)
--- NOTE | 2018-08-29 19:04 | PROGRESS NOTE ---
DATE: 08/29/2018 SUBJECTIVE: The patient is lying in bed. She complains of shortness of breath. She is currently on 4 L of supplemental oxygen. She also complains of abdominal pain and distention. OBJECTIVE: Vital Signs: Temperature 98.2 degrees, blood pressure 138/78, heart rate 114, respirations 19, O2 sats 95% on 4 L nasal cannula. General: This is a morbidly obese female lying in bed in no acute distress. Heart: S1, S2. Normal. Lungs: Diminished breath sounds bilaterally. No crackles. Abdomen: Positive bowel sounds. Obese. Positive for ascites, distended. Extremities: 1+ edema bilaterally. Neurologic: The patient is alert and oriented x3. LABORATORY DATA: Hemoglobin 12, hematocrit 39, platelets 73,000. Sodium 137, potassium 4.1, chloride 97, CO2 33, BUN 10, creatinine 0.5, glucose 113, calcium 8.5, AST 54, total bilirubin 2.4, albumin 2.5. ASSESSMENT AND PLAN: 1. Massive ascites status post paracentesis. We will continue to monitor the patient closely. Continue on albumin, diuretic and Aldactone therapy. 2. Liver cirrhosis. Management as per GI. 3. Splenomegaly with portal hypertension. Aware. 4. Acute hypoxemic respiratory failure. We will check a CT of the chest. Continue on supplemental oxygen. 5. Chronic thrombocytopenia. This is likely secondary to the patient's underlying liver disease and splenomegaly. We will continue to monitor the platelet count closely. 6. Hypothyroidism. Continue on Synthroid. 7. Constipation. Continue with laxative therapy. 8. Anxiety disorder. Continue on Klonopin. cc: Susan Freed MD MTDDelmar
--- NOTE | 2018-08-29 21:18 | Diag Imaging Result Doc PS360 ---
EXAM: CT THORAX W/O CONTRAST HISTORY: hypoxia/dyspnea TECHNIQUE: Emergency CT chest without contrast COMPARISON: 06/28/2018 FINDINGS: Poor inspiratory effort. No cardiomegaly. No thoracic aortic aneurysm. Bibasilar atelectasis and infiltrates. Small mediastinal nodes. Images through the upper abdomen reveal cirrhosis IMPRESSION: Basilar atelectasis and infiltrates This exam was performed using automated exposure control, adjustment of mA or kV according to patient size, and/or use of iterative reconstruction technique. Electronically signed by Phil Tan 08/29/2018 9:15 PM
[2018-08-29] MEDS: COLACE PO SCH (22:41)
--- NOTE | 2018-08-29 23:36 | PROVIDER PROGRESS NOTE ---
Progress Note SUBJECTIVE: No acute overnight events. Afebrile. Nausea without vomiting. Patient complaints of abdominal distension. +BMs. OBJECTIVE: Last Vital Signs Temp 98.7 F 08/30/18 00:00 Pulse 108 H 08/30/18 00:00 Resp 18 08/29/18 22:20 BP 118/67 08/30/18 00:00 Pulse Ox 92 L 08/30/18 00:00 Height 5 ft 4.5 in Weight 256 lb 1 oz General: The patient is awake, alert, no acute distress. HEENT: Sclerae anicteric. Moist mucous membranes. Extraocular motor intact. Neck: supple. No JVD or lymphadenopathy. Cardiac: Regular rate and rhythm. No murmurs, rubs, or gallops. Lungs: Clear to auscultation bilaterally. No wheezing, crackles, or rhonchi. Cardiac: Regular rate and rhythm. No murmurs, rubs, or gallops. Abdomen: Obese, soft, nontender, distended, difficult to appreciate ascites given habitus. She has a large pannus. Extremities: With a minimal edema. No clubbing, cyanosis. Skin: Warm and well perfused. No jaundice. Neurologic: Nonfocal. She is A O x3, no asterixis. A/P Ms. Rupa Sheppard is a 43-year-old woman with past medical history of morbid obesity, hypothyroidism, chronic pain on opiates, probable ANGELA cirrhosis complicated with bleeding varices requiring banding and Nadolol who presents with 1 month of worsening ascites. He LFTs have improved since admission. Chronic liver disease workup is essentially unremarkable. # Decompensated ANGELA cirrhosis - Cirrhosis: trending LFTs, INR daily - Ascites: s/p LVP; continue lasix and aldactone low NA diet - PSE: none prior; no indication for lactulose unless has encephalopathy on exam; ammonia is not a good surrogate; follow clinically - EV: prior banding; continue nadolol; resume home nadolol; will need repeat EGD and colonoscopy as outpatient - HCC: no hepatoma on imaging - OLT: low MELD # Constipation: continue miralax # Chronic pain syndrome: continue home meds # Anemia: no overt bleeding Will follow with you. Please call with questions
[2018-08-30] MEDS: NORCO-7.5 PO PRN ×3 (03:01→17:33)
[2018-08-30] MEDS: SYNTHROID PO SCH ×2 (05:45→09:15)
--- NOTE | 2018-08-30 06:49 | Diag Imaging Result Doc PS360 ---
CHEST-PORTABLE - 08/30/2018 INDICATION: dyspnea COMPARISON: 08/26/2018 FINDINGS: Stable critically low lung volumes. Stable bibasilar atelectasis. IMPRESSION: No change from prior. Electronically signed by Gallo Boateng 08/30/2018 6:47 AM
[2018-08-30 08:16] LABS: ALLEN TEST NO; BE 8.9 mmoll (-3.0-3.0); BLOOD TYPE ARTERIAL; HCO3-(ACT) 31.9 mmoll (20.0-26.0); O2(CT) 14.7 mL/dL (15.0-23.0); O2HB 96.8 % (95.0-99.0); PCO2(98.6) 49 mmHg (35-45); PO2(98.6) 139 mmHg (60-100); SAMPLE BLOOD; SAO2 99.4 % (95.0-100.0); THB 10.6 g/dL (11.5-17.4); pH(98.6) 7.45 (7.35-7.45)
[2018-08-30 08:17] LABS: MODALITY CANNULA
[2018-08-30 09:19] LABS: MAGNESIUM 1.9 mg/dL (1.5-2.7); PHOSPHORUS 3.4 mg/dL (2.7-4.5)
[2018-08-30] MEDS: LASIX PO SCH (09:20)
[2018-08-30] MEDS: KLONOPIN PO SCH ×2 (09:20→23:48)
[2018-08-30] MEDS: MIRALAX PO SCH (09:20)
[2018-08-30] MEDS: COLACE PO SCH ×2 (09:20→23:48)
[2018-08-30] MEDS: ALDACTONE PO SCH (09:20)
[2018-08-30] MEDS: NICODERM PATCH TD SCH (09:20)
[2018-08-30] MEDS: PRILOSEC PO SCH ×3 (09:20→23:48)
[2018-08-30] MEDS: NEURONTIN PO SCH ×2 (09:20→23:48)
[2018-08-30] MEDS: ALBUMIN 25% IV SCH (09:22)
[2018-08-30 09:24] LABS: HEMATOCRIT 32.3 % (37.0-47.0); HEMOGLOBIN 10.4 g/dL (12.0-16.0); MCH 32.2 PG (27-31); MCHC 32.2 g/dL (33-37); RBC 3.23 XMIL (4.2-5.4); RDW 17.8 % (11.5-14.5); WBC 3.38 X1000 (4.8-10.8)
[2018-08-30] MEDS: DUONEB (A & A) INH SCH ×3 (09:48→21:30)
[2018-08-30 09:56] LABS: AGAP 10; ALB/GLOB RATIO 0.8; ALBUMIN 2.8 g/dL (3.5-5.0); ALKALINE PHOSPHATASE 120 U/L (32-104); BUN 10 mg/dL (8-22); CALCIUM 8.5 mg/dL (8.8-10.2); CHLORIDE 96 mmol/L (98-107); COSMO 272; CREATININE 0.5 mg/dL (0.5-0.9); ESTIMATED GFR > 60; GLUCOSE 124 mg/dL (70-104); GOT 39 U/L (10-30); GPT 17 U/L (10-36); POTASSIUM 3.9 mmol/L (3.5-5.1); SODIUM 136 mmol/L (136-145); TCO2 30 mmol/L (25-35); TOTAL BILIRUBIN 1.96 mg/dL (0.20-1.00); TOTAL PROTEIN 6.4 g/dL (6.3-8.3)
[2018-08-30 09:57] LABS: HEMOGLOBIN A1C 5.2 % (4.8-6.0)
[2018-08-30] MEDS: ZITHROMAX PO SCH (11:17)
[2018-08-30] MEDS: MAXIPIME 1 GM in NS 50 ML IV SCH ×2 (11:17→23:36)
[2018-08-30] MEDS ORDERED: NS 500 ML ONE (11:21)
[2018-08-30] MEDS ORDERED: LASIX IV ONE (17:36)
--- NOTE | 2018-08-30 17:57 | PROGRESS NOTE ---
DATE: 08/30/2018 SUBJECTIVE: The patient continues to complain of abdominal swelling and shortness of breath. OBJECTIVE: Vital Signs: Temperature 98.2 degrees, blood pressure 127/67, heart rate 102, respirations 16, O2 saturation 95% on 4 L nasal cannula. General: This is a morbidly obese female, sitting up in bed in no acute distress. Heart: S1, S2 normal. Tachycardic. Lungs: Diminished breath sounds at the bases. Abdomen: Positive bowel sounds. Soft. Distended. Extremities: Trace pedal edema. Neurologic: The patient is alert and oriented x4. DIAGNOSTIC STUDIES: White blood cell count 10, hemoglobin 32, platelets 62,000. Sodium 136, potassium 3.9, chloride 96, CO2 of 30, BUN 10, creatinine 0.5, total bilirubin 1.9, AST 39, ALT 17, alkaline phosphatase 120. Chest x-ray shows critically low lung volumes. ASSESSMENT AND PLAN: 1. Massive ascites status post paracentesis. Continue on Lasix and Aldactone. Further management as per Gastroenterology. 2. Liver cirrhosis. Aware. 3. Splenomegaly with portal hypertension. Aware. 4. Pneumonia. We will start the patient on antibiotic therapy. Continue with supplemental oxygen. 5. Chronic thrombocytopenia. The patient's platelet count is a little lower today. We will continue to monitor closely. 6. Hypothyroidism. Continue on Synthroid. 7. Morbid obesity. Aware. 8. Anxiety disorder. Continue on Klonopin. 9. Hepatic encephalopathy. Improved. Continue on lactulose. 10. Tobacco dependence. The patient has been counseled about smoking cessation. cc: Susan Freed MD MTDD
--- NOTE | 2018-08-30 23:40 | PROVIDER PROGRESS NOTE ---
Progress Note SUBJECTIVE: OBJECTIVE: Last Vital Signs Temp 98.9 F 08/30/18 20:00 Pulse 108 H 08/30/18 20:00 Resp 16 08/30/18 15:31 BP 128/64 08/30/18 20:00 Pulse Ox 97 08/30/18 20:00 Height 5 ft 4.5 in Weight 255 lb 9 oz General: The patient is awake, alert, no acute distress. HEENT: Sclerae anicteric. Moist mucous membranes. Extraocular motor intact. Neck: supple. No JVD or lymphadenopathy. Cardiac: Regular rate and rhythm. No murmurs, rubs, or gallops. Lungs: Clear to auscultation bilaterally. No wheezing, crackles, or rhonchi. Cardiac: Regular rate and rhythm. No murmurs, rubs, or gallops. Abdomen: Obese, soft, mild TTP RLQ, no rebound or guarding, difficult to appreciate ascites given habitus Extremities: With a minimal edema. No clubbing, cyanosis. Skin: Warm and well perfused. No jaundice. Neurologic: Nonfocal. She is A O x3, no asterixis. LABS: 08/29/18 08/29/18 08/29/18 06:00 06:10 06:10 WBC 4.44 L RBC Hgb 12.6 Plt Count 73 L INR 1.31 pH pCO2 pO2 Sodium 137 Potassium 4.1 Chloride 97 L Carbon Dioxide 33 BUN 10 Creatinine 0.5 Glucose 113 H Total Bilirubin 2.49 H AST 54 H ALT 21 Alkaline Phosphatase 147 H Total Protein 6.7 Albumin 2.5 L 08/30/18 08/30/18 08/30/18 04:50 06:35 06:35 WBC 3.38 L RBC 3.23 L Hgb 10.4 L D Plt Count 62 L INR pH 7.45 pCO2 49 H pO2 139 H Sodium 136 Potassium 3.9 Chloride 96 L Carbon Dioxide 30 BUN 10 Creatinine 0.5 Glucose 124 H Total Bilirubin 1.96 H AST 39 H ALT 17 Alkaline Phosphatase 120 H Total Protein 6.4 Albumin 2.8 L A/P: Ms. Rupa Sheppard is a 43-year-old woman with past medical history of morbid obesity, hypothyroidism, chronic pain on opiates, probable ANGELA cirrhosis complicated with bleeding varices requiring banding and Nadolol who presented with 1 month of worsening ascites. He LFTs have improved since admission. Chronic liver disease workup is essentially unremarkable. # Decompensated ANGELA cirrhosis - Cirrhosis: trending LFTs, INR daily - Ascites: s/p LVP; continue lasix 40mg and aldactone 100mg daily; low NA diet; - PSE: none prior; no indication for lactulose unless has encephalopathy on exam; ammonia is not a good surrogate; follow clinically - EV: prior banding; continue nadolol; will need repeat EGD and colonoscopy as outpatient - HCC: no hepatoma on imaging - OLT: low MELD # Constipation: continue miralax # Chronic pain syndrome: continue home meds # Anemia: no overt bleeding # Thrombocytopenia: noted Will follow with you. Please call with question
[2018-08-30] MEDS: LACTULOSE PO SCH (23:49)
[2018-08-31] MEDS: NORCO-7.5 PO PRN ×3 (00:06→17:42)
[2018-08-31] MEDS: SYNTHROID PO SCH ×2 (05:47→08:20)
[2018-08-31 07:01] LABS: HEMATOCRIT 31.8 % (37.0-47.0); HEMOGLOBIN 10.1 g/dL (12.0-16.0); MCHC 31.8 g/dL (33-37); MCV 100.6 FL (81-99); MPV 11.3 FL (7.4-10.4); RBC 3.16 XMIL (4.2-5.4); RDW 18.1 % (11.5-14.5); WBC 3.05 X1000 (4.8-10.8)
[2018-08-31 07:14] LABS: AGAP 8; ALB/GLOB RATIO 0.8; ALBUMIN 2.8 g/dL (3.5-5.0); ALKALINE PHOSPHATASE 114 U/L (32-104); BUN 9 mg/dL (8-22); CALCIUM 8.7 mg/dL (8.8-10.2); CHLORIDE 94 mmol/L (98-107); COSMO 272; CREATININE 0.6 mg/dL (0.5-0.9); ESTIMATED GFR > 60; GLUCOSE 130 mg/dL (70-104); GOT 41 U/L (10-30); GPT 16 U/L (10-36); POTASSIUM 3.8 mmol/L (3.5-5.1); SODIUM 136 mmol/L (136-145); TCO2 34 mmol/L (25-35); TOTAL BILIRUBIN 1.93 mg/dL (0.20-1.00); TOTAL PROTEIN 6.2 g/dL (6.3-8.3)
[2018-08-31 07:28] LABS: MAGNESIUM 1.7 mg/dL (1.5-2.7); PHOSPHORUS 3.7 mg/dL (2.7-4.5)
[2018-08-31] MEDS: NICODERM PATCH TD SCH (08:56)
[2018-08-31] MEDS: ALDACTONE PO SCH (08:56)
[2018-08-31] MEDS: COLACE PO SCH ×2 (08:56→20:15)
[2018-08-31] MEDS: NEURONTIN PO SCH ×2 (08:56→20:15)
[2018-08-31] MEDS: LASIX PO SCH (08:56)
[2018-08-31] MEDS: KLONOPIN PO SCH ×2 (08:56→20:15)
[2018-08-31] MEDS: ZITHROMAX PO SCH (08:56)
[2018-08-31] MEDS: MIRALAX PO SCH (08:57)
[2018-08-31] MEDS: LACTULOSE PO SCH ×2 (08:57→20:16)
[2018-08-31] MEDS: PRILOSEC PO SCH ×2 (08:57→20:15)
[2018-08-31] MEDS: MAXIPIME 1 GM in NS 50 ML IV SCH (09:35)
[2018-08-31] MEDS: ALBUMIN 25% IV SCH (10:32)
[2018-08-31] MEDS: MAG-OX PO SCH (10:33)
[2018-08-31] MEDS: DUONEB (A & A) INH SCH ×3 (10:52→21:30)
[2018-08-31 11:05] LABS: ALLEN TEST YES; BE 11.3 mmoll (-3.0-3.0); BLOOD TYPE ARTERIAL; HCO3-(ACT) 33.5 mmoll (20.0-26.0); METHB 0.7 % (0.0-1.5); O2(CT) 13.7 mL/dL (15.0-23.0); PO2(98.6) 51 mmHg (60-100); SAMPLE BLOOD; SAO2 89.7 % (95.0-100.0); THB 11.1 g/dL (11.5-17.4); pH(98.6) 7.41 (7.35-7.45)
[2018-08-31 11:10] LABS: PCO2(98.6) 60 mmHg (35-45)
[2018-08-31 11:11] LABS: MODALITY ROOM AIR; O2HB 87.5 % (95.0-99.0)
--- NOTE | 2018-08-31 11:12 | PROGRESS NOTE ---
DATE: 08/31/2018 SUBJECTIVE: The patient is sitting up in bed. She states that her abdomen is not as distended as it was yesterday. She still requires supplemental oxygen and complains of shortness of breath with minimal exertion. OBJECTIVE: Vital Signs: Temperature 98.2 degrees, blood pressure 116/50, heart rate 96, respirations 18, O2 saturation is 96% on 4 L nasal cannula. General: This is a morbidly obese female, lying in bed in no acute distress. Heart: S1, S2 normal. Lungs: Diminished breath sounds at the bases. Abdomen: Positive bowel sounds. Soft, nontender. Mildly distended. Extremities: Trace pedal edema. No cyanosis. Neurologic: The patient is alert and oriented x4. LABORATORIES: White blood cell count 3, hemoglobin 10, hematocrit 31, platelets 60,000. Sodium 136, potassium 3.8, chloride 94, CO2 of 34, BUN 9, creatinine 0.6, glucose 130, total bilirubin 1.9, AST 41, ALT 16, alkaline phosphatase 114, total protein 6.2, albumin 2.8. ASSESSMENT AND PLAN: 1. Acute hypoxemic and hypercapnic respiratory failure. Will continue with antibiotics bronchodilator therapy and supplemental oxygen. Will consult pulmonary. 2. Pneumonia. Continue with antibiotic therapy and supplemental oxygen. 3. Splenomegaly with portal hypertension. Aware. 4. Liver cirrhosis secondary to nonalcoholic steatohepatitis. Management as per Gastroenterology. 5. Hypothyroidism. Continue on Synthroid. 6. Massive ascites status post paracentesis. Continue on Lasix and Aldactone. 7. Hepatic encephalopathy. Improved. Continue on lactulose. 8. Anxiety disorder. Continue on Klonopin. 9. Morbid obesity. Aware. The patient has been counseled about weight loss and proper diet. 10. Tobacco dependence. The patient has been counseled about smoking cessation. 11. Chronic thrombocytopenia. Slightly decreased. Likely secondary to the splenomegaly. 12. Possible ANAHI. Will need a sleep study as outpatient. cc: Susan Freed MD MTDD
--- NOTE | 2018-08-31 13:05 | GASTROENTEROLOGY PROGRESS NOTE ---
DATE: 08/31/2018 SUBJECTIVE: The patient is resting in bed. She is feeling better. She had some oozing of ascitic fluid from the paracentesis site. She has an ostomy bag in place. Her abdomen is soft. She is afebrile. She denied any nausea or vomiting. She denied any fevers, rigors, or chills. PHYSICAL EXAMINATION: Vital Signs: Temperature 98.3, pulse rate of 108, respiratory rate of 20, blood pressure 140/68, saturating 97% on nasal cannula. Body weight of 256 pounds 1 ounce. BMI 43.3 kg/m2. General Appearance: Morbidly obese. Sitting in bed, in no acute distress. HEENT: Pale conjunctivae. Mild icterus. Neck is supple. Abdomen: Obese, soft. Ostomy bag in the right abdomen from recent paracentesis site. No guarding or rebound. Extremities: No cyanosis, clubbing. Neurological: Alert, awake, and oriented x3. LABS: Hemoglobin and hematocrit are 10.1 and 31.8, white count 3.05, platelet count of 60,000. ABG showing pH of 7.41, pCO2 of 60, PO2 of 51. This is on room air. Sodium 132, potassium 3.8, chloride 94, bicarbonate of 34, anion gap of 8, BUN of 9, creatinine 0.6, glucose of 130, calcium is 8.7, phosphorus 3.7, magnesium 1.7. Total bilirubin is 1.93, AST 41, ALT 16, alkaline phosphatase 114, total protein is 6.2, albumin of 2.8. Alpha 1 antitrypsin level is normal at 155. Ceruloplasmin level is 20.7, which is normal. Tumor marker AFP is less than 2.7, normal. TSH 2.05. Iron studies showed ferritin of 46. Fluid studies shows white count of 232, percent neutrophils 34%. Her FABRICIO is positive. Anti-DS DNA is 87, antimitochondrial antibody is less than 0.1, anti-smooth muscle antibody is negative. Hepatitis panel is nonreactive. AFB in the ascitic fluid, there is no AFB seen. Her SAAG is more than 1.1, suggesting portal hypertension, liver cirrhosis as a cause of ascites. Her peritoneal fluid is showing no growth. No anaerobes. Urine culture is showing no growth. IMPRESSION AND PLAN: 1. Decompensated nonalcoholic steatohepatitis cirrhosis. 2. Ascites. 3. Obesity. 4. Hypothyroidism. 5. Chronic pain, on opioids. 6. History of esophageal varices with bleeding requiring banding and nadolol. 7. Constipation. 8. Chronic pain syndrome. 9. Anemia. 10. Thrombocytopenia. RECOMMENDATIONS: 1. We will continue with close watching of liver enzymes and platelet counts. She will continue to avoid hepatotoxic drugs. She will continue on a low-sodium diet, less than 1.5 g in 24 hours. She will continue fluid restriction of less than 1.5 L in 24 hours. She will continue to aggressively try to lose weight. We will keep her on lactulose twice daily for constipation. She will continue on omeprazole twice daily. She will continue MiraLAX once daily. She will continue on Lasix 40 mg daily and Aldactone 100 mg daily. She will continue to try to quit smoking. She will continue nicotine patch. 2. She will continue on cefepime for now. She has a high white count in the ascitic fluid, although the cultures were negative, but she was already on antibiotics before the ascitic tap. Thus, SBP could be possible so she will continue on antibiotics for a total of 7 to 10 days in the form of ciprofloxacin 500 mg b.i.d. for 7 to 10 days on discharge. 3. The patient has been seen at [facility] in the past. She will need to set up her care with the [facility] at [facility]. 4. She will continue on nadolol. We will start her today at 20 mg per day. Hold for side effects like low heart rate less than 55 beats per minute or low systolic blood pressure less than 100 mmHg. 5. The above plans were discussed with the patient. All questions were answered. The patient will return to the clinic in 4 weeks of discharge. We will sign off at this time. Please call us with any further questions. cc: MD Susan Martin MD
--- NOTE | 2018-08-31 14:05 | Diag Imaging Result Doc PS360 ---
EXAM: CHEST-2 VIEWS HISTORY: pneumonia TECHNIQUE: Chest two views COMPARISON: 08/30/2018 FINDINGS: Poor inspiratory effort with basilar atelectasis. No cardiomegaly. No pulmonary edema. No consolidation. IMPRESSION: No definite pneumonia. Electronically signed by Phil Tan 08/31/2018 2:02 PM
[2018-08-31] MEDS: CORGARD PO SCH ×2 (14:10)
[2018-08-31 14:12] LABS: INR 1.48; PROTIME 19.1 Seconds (11.0-16.0)
[2018-08-31 14:13] LABS: PTT 37.2 Seconds (22.3-41.8)
[2018-08-31 15:58] LABS: URINE SOURCE CLEAN CATCH
[2018-08-31 16:03] LABS: BILIRUBIN URINE NEGATIVE (NEGATIVE); BLOOD URINE TRACE (NEGATIVE); COLOR YELLOW; GLUCOSE URINE NEGATIVE (NEGATIVE); KETONE URINE NEGATIVE (NEGATIVE); LEUKOCYTES URINE LARGE (NEGATIVE); NITRITE URINE NEGATIVE (NEGATIVE); PROTEIN URINE TRACE mg/dL (NEGATIVE); SP GRAVITY URINE 1.015; TURBIDITY URINE HAZY (CLEAR); UROBILINOGEN URINE NORMAL (NORMAL)
[2018-08-31 16:06] LABS: UR EPITHELIAL CELLS <10 /HPF (<10); URINE BACTERIA NEGATIVE /HPF; URINE RBC <10 /HPF (<10); URINE WBC 20-40 /HPF (<10)
[2018-08-31 16:11] LABS: URINE CASTS NONE SEEN; URINE CRYSTALS CA OXALATE PRESENT; URINE TRICHOMONAS PRESENT; URINE YEAST NONE SEEN
--- NOTE | 2018-08-31 21:52 | PULMONOLOGY CONSULTATION ---
DATE: 08/31/2018 REQUESTING PHYSICIAN: Dr. Freed. REASON FOR CONSULTATION: Respiratory failure. HISTORY OF PRESENT ILLNESS: Ms. Sheppard is 43-year-old white female, with morbid obesity and a BMI greater than 40, cirrhosis of the liver possibly due to nonalcoholic steatohepatitis, who was admitted through the emergency room on 08/25/2018 due to increasing shortness of breath. CT scan of the abdomen and pelvis revealed a cirrhotic liver with a large volume of ascites. The patient underwent ultrasound-guided paracentesis on 08/28/2018, with 4 L of serous fluid aspirated. Four days later, the patient underwent CT scan of the thorax for hypoxemia and dyspnea, and the volume of ascites fluid between the CT scan of the chest on 08/29/2018 and the abdomen and the pelvis on 08/25/2018 was not significantly different, suggesting rapid reaccumulation of her ascitic fluid. PAST MEDICAL HISTORY: Problem list: 1. Morbid obesity, with a BMI greater than 43. 2. Cirrhosis of the liver. 3. Status post cholecystectomy. 4. Status post hysterectomy. 5. Status post appendectomy. 6. Hypothyroidism. 7. Anxiety/depressive disorder. 8. History of bleeding varices, requiring banding in March 2017. SOCIAL HISTORY: The patient smokes 1 pack of cigarettes per week. No alcohol use listed. FAMILY HISTORY: Notable for colon cancer, alcoholic cirrhosis in a paternal uncle. PHYSICAL EXAMINATION: General: Reveals an obese white female who is sleeping, but arousable. She will briefly engage with the examiner, then goes back to sleep. Vital Signs: Blood pressure 98/46, heart rate 76, respiratory rate 18, oxygen saturation 89% on room air. HEENT: Pupils are equal and reactive. Oropharynx appears clear. Neck: Supple. Chest: Reveals shallow breath sounds bilaterally with crackles in the bases. Cardiac: S1, S2. Abdomen: Obese and soft. It is difficult to appreciate a fluid wave with her obesity. Extremities: Reveal trace edema. LABORATORIES: Arterial blood gas reveals pH 7.41, pCO2 of 60, pO2 of 51. CT scan as per HPI. Chest x-ray reveals very shallow inspiration with atelectasis in the lung bases. IMPRESSION: A 43-year-old with cirrhosis of the liver, morbid obesity, ascites, who has chronic hypercapnic respiratory failure due to obesity, and likely has acute hypoxemic respiratory failure due to obesity, plus elevation of hemidiaphragms related to increased abdominal pressure associated with her obesity, and reaccumulation of peritoneal ascites. RECOMMENDATIONS: 1. Encourage patient to discontinue smoking. This will only exacerbate her hypoxemia. 2. Aggressive control of ascites if possible, which is impacting her ability to ventilate and oxygenate. 3. 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 4. Recommend outpatient sleep evaluation. 5. Overall prognosis appears poor given her multiple comorbidities. cc: Cameron White MD
[2018-09-01] MEDS: NORCO-7.5 PO PRN ×4 (01:06→20:04)
[2018-09-01] MEDS: MAXIPIME 1 GM in NS 50 ML IV SCH ×3 (01:08→22:16)
[2018-09-01] MEDS: SYNTHROID PO SCH (06:46)
[2018-09-01 06:58] LABS: HEMATOCRIT 30.7 % (37.0-47.0); HEMOGLOBIN 9.8 g/dL (12.0-16.0); MCHC 31.9 g/dL (33-37); MCV 100.3 FL (81-99); MPV 11.2 FL (7.4-10.4); RBC 3.06 XMIL (4.2-5.4); RDW 17.9 % (11.5-14.5); WBC 2.81 X1000 (4.8-10.8)
[2018-09-01 07:05] LABS: AGAP 5; ALB/GLOB RATIO 0.8; ALBUMIN 2.5 g/dL (3.5-5.0); ALKALINE PHOSPHATASE 106 U/L (32-104); BUN 11 mg/dL (8-22); CALCIUM 9.6 mg/dL (8.8-10.2); CHLORIDE 95 mmol/L (98-107); COSMO 272; CREATININE 0.4 mg/dL (0.5-0.9); ESTIMATED GFR > 60; GLUCOSE 119 mg/dL (70-104); GOT 38 U/L (10-30); GPT 15 U/L (10-36); SODIUM 136 mmol/L (136-145); TCO2 36 mmol/L (25-35); TOTAL BILIRUBIN 1.57 mg/dL (0.20-1.00); TOTAL PROTEIN 5.7 g/dL (6.3-8.3)
[2018-09-01] MEDS: PRILOSEC PO SCH ×2 (10:06→21:24)
[2018-09-01] MEDS: NICODERM PATCH TD SCH (10:08)
[2018-09-01] MEDS: KLONOPIN PO SCH ×2 (10:08→21:21)
[2018-09-01] MEDS: MIRALAX PO SCH (10:08)
[2018-09-01] MEDS: COLACE PO SCH ×2 (10:09→21:24)
[2018-09-01] MEDS: CORGARD PO SCH (10:09)
[2018-09-01] MEDS: LASIX PO SCH (10:09)
[2018-09-01] MEDS: LACTULOSE PO SCH ×2 (10:09→21:21)
[2018-09-01] MEDS: MAG-OX PO SCH (10:10)
[2018-09-01] MEDS: NEURONTIN PO SCH ×2 (10:10→21:22)
[2018-09-01] MEDS: ZITHROMAX PO SCH (10:10)
[2018-09-01] MEDS: ALDACTONE PO SCH (10:11)
[2018-09-01] MEDS ORDERED: LASIX IV ONE (10:21)
[2018-09-01] MEDS ORDERED: ALBUMIN 25% IV ONE (10:27)
--- NOTE | 2018-09-01 11:12 | PROGRESS NOTE ---
DATE: 09/01/2018 SUBJECTIVE: The patient is resting in bed. She is now on 3 L of supplemental oxygen. She has been refusing to take her lactulose as reported by the nursing staff. OBJECTIVE: Vital Signs: Temperature 98.3 degrees, blood pressure 118/59, heart rate respirations 18, O2 saturations 94% on 3 L nasal cannula. General: This is a morbidly obese female lying in bed in no acute distress. HEENT: Head normocephalic atraumatic. Heart: S1, S2 normal. Regular rate and rhythm. Lungs: Diminished breath sounds bilaterally. No crackles. No rales. Abdomen: Positive bowel sounds. Soft. Positive for ascites. Extremities: Trace pedal edema. Neurologic: The patient is alert and oriented x3. LABS: White blood cell count 2.8, hemoglobin 9.8, platelets 59,000. Sodium 136, potassium 4, chloride 95, CO2 36, BUN 11, creatinine 0.4, glucose 119, total bilirubin 1.5, AST 38, ALT 15, alkaline phosphatase 106, albumin 2.5. ASSESSMENT AND PLAN: 1. Acute on chronic hypoxemic and hypercapnic respiratory failure. We patient will continue to try and wean down the patient's supplemental oxygen. 2. Massive ascites status post paracentesis. Discussed with Dr. Brady and he recommends for the patient to continue on Lasix and Aldactone. 3. Liver cirrhosis secondary to nonalcoholic steatohepatitis. Aware. 4. Splenomegaly with portal hypertension. Aware. 5. Pneumonia. The patient is on cefepime and supplemental oxygen. 6. Possible spontaneous bacterial peritonitis. The patient is currently on cefepime. The cultures were negative. 7. Hepatic encephalopathy. The patient has been refusing to take her lactulose. We will add rifaximin. 8. Morbid obesity. The patient has been counseled about weight loss and proper diet. 9. Thrombocytopenia. The patient's platelet count is slowly dropping. This is likely secondary to the patient's splenomegaly. We will continue to monitor closely. The patient has no active bleeding at this time. 10. Tobacco dependence. The patient has been counseled about smoking cessation. 11. Anxiety disorder. Continue on Klonopin. 12. Disposition. Fingerprinter has made arrangements for the patient to obtain home oxygen. We will continue to monitor the patient closely. cc: Susan Freed MD
[2018-09-01] MEDS: DUONEB (A & A) INH SCH ×3 (11:24→20:36)
--- NOTE | 2018-09-01 12:23 | Diag Imaging Result Doc PS360 ---
US ABDOMEN-COMPLETE - 09/01/2018 INDICATION: recurrent ascites COMPARISON: 08/28/2018 FINDINGS: The exam is extremely challenging due to the patient's large size. There is no significant ascites. The liver is nodular and cirrhotic. There is splenomegaly. The spleen measures 14.9 x 14.4 x 4.8 cm. The pancreas is obscured. Both kidneys are grossly normal. Aorta, IVC, and main portal vein are obscured. Common bile duct is obscured. IMPRESSION: Cirrhosis. Splenomegaly. No significant ascites. Electronically signed by Gallo Boateng 09/01/2018 12:21 PM
--- NOTE | 2018-09-01 21:23 | PULMONOLOGY PROGRESS NOTE ---
DATE: 09/01/2018 SUBJECTIVE: The patient is awake and alert. She reports her breathing is "doing okay." She is without specific complaints. OBJECTIVE: Vital Signs: BP 104/54, heart rate 77, respiratory rate 15, oxygen saturation 94% on 3 L per nasal cannula. HEENT: Pupils are equal and reactive. Oropharynx appears clear. Neck: Supple. Chest: Reveals shallow breath sounds bilaterally. Cardiac exam: S1, S2. Abdomen: Obese and soft. Extremities: Reveal trace edema. LABORATORIES: Sodium 136, potassium 4.0, chloride 95, bicarbonate 36, BUN 11, creatinine 0.4. IMPRESSION: A 43-year-old with cirrhosis, ascites, portal hypertension, morbid obesity with a BMI greater than 43, with component of chronic hypoxemic respiratory failure and acute hypoxemic respiratory failure. The patient also has chronic hypercapnic respiratory failure due to obesity. RECOMMENDATIONS: 1. Encouraged patient to discontinue smoking. 2. emt intermediate weight loss will be crucial for management of her respiratory status and in the event she might need a liver transplantation. 3. The patient will likely require oxygen at the time of discharge. cc: Cameron White MD
[2018-09-01] MEDS: XIFAXAN PO SCH (21:24)
[2018-09-02] MEDS: NORCO-7.5 PO PRN ×4 (03:56→23:39)
[2018-09-02] MEDS: SYNTHROID PO SCH (06:10)
[2018-09-02 07:22] LABS: HEMOGLOBIN 9.7 g/dL (12.0-16.0); MCHC 32.3 g/dL (33-37); MPV 11.7 FL (7.4-10.4); RBC 3.03 XMIL (4.2-5.4); RDW 17.8 % (11.5-14.5); WBC 2.44 X1000 (4.8-10.8)
[2018-09-02 07:32] LABS: AGAP 4; ALB/GLOB RATIO 0.9; ALBUMIN 2.6 g/dL (3.5-5.0); ALKALINE PHOSPHATASE 103 U/L (32-104); BUN 12 mg/dL (8-22); CALCIUM 7.8 mg/dL (8.8-10.2); CHLORIDE 94 mmol/L (98-107); COSMO 267; CREATININE 0.5 mg/dL (0.5-0.9); ESTIMATED GFR > 60; GLUCOSE 116 mg/dL (70-104); GOT 36 U/L (10-30); GPT 14 U/L (10-36); POTASSIUM 4.3 mmol/L (3.5-5.1); SODIUM 133 mmol/L (136-145); TCO2 35 mmol/L (25-35); TOTAL BILIRUBIN 1.62 mg/dL (0.20-1.00); TOTAL PROTEIN 5.4 g/dL (6.3-8.3)
[2018-09-02] MEDS: KLONOPIN PO SCH ×2 (10:56→21:51)
[2018-09-02] MEDS: DUONEB (A & A) INH SCH ×3 (11:01→21:30)
[2018-09-02] MEDS: NEURONTIN PO SCH ×2 (11:01→21:50)
[2018-09-02] MEDS: PRILOSEC PO SCH ×2 (11:02→21:51)
[2018-09-02] MEDS: LASIX PO SCH (11:03)
[2018-09-02] MEDS: ZITHROMAX PO SCH (11:03)
[2018-09-02] MEDS: ALDACTONE PO SCH (11:03)
[2018-09-02] MEDS: CORGARD PO SCH (11:04)
[2018-09-02] MEDS: COLACE PO SCH ×2 (11:06→21:51)
[2018-09-02] MEDS: MAG-OX PO SCH (11:07)
[2018-09-02] MEDS: MAXIPIME 1 GM in NS 50 ML IV SCH ×2 (11:08→21:51)
[2018-09-02] MEDS: NICODERM PATCH TD SCH (11:09)
[2018-09-02] MEDS: LACTULOSE PO SCH ×2 (11:09→21:51)
[2018-09-02] MEDS: XIFAXAN PO SCH ×2 (11:10→21:50)
[2018-09-02] MEDS: MIRALAX PO SCH (11:10)
--- NOTE | 2018-09-02 16:04 | PULMONOLOGY PROGRESS NOTE ---
DATE: 09/02/2018 SUBJECTIVE: The patient is awake, alert and conversant. She denies shortness of breath. OBJECTIVE: Vital Signs: Blood pressure 106/51, heart rate 81, respiratory rate 22, oxygen saturation 95%. She has been afebrile for the last 24 hours. HEENT: Pupils are equal and reactive. Oropharynx is clear. Neck: Supple. Chest: Reveals shallow breath sounds bilaterally. Cardiac Exam: S1, S2. Abdomen: Soft and obese. Extremities: Without edema. LABORATORIES: Sodium 133, potassium 4.3, chloride 94, bicarbonate 35, BUN 12, creatinine 0.5. IMPRESSION: A 43-year-old with: 1. Acute and chronic hypoxemic respiratory failure. 2. Morbid obesity. 3. Cirrhosis, nonalcoholic steatohepatitis is suspected. 4. Ascites. 5. Portal hypertension. 6. Ongoing tobacco use. RECOMMENDATION: 1. The patient is acceptable for discharge with oxygen therapy. 2. Encourage patient to discontinue smoking. 3. Long-term, patient needs to lose a significant amount of weight. 4. Recommend outpatient sleep study if this has not been performed. cc: Cameron White MD
--- NOTE | 2018-09-02 17:37 | PROGRESS NOTE ---
DATE: 09/02/2018 SUBJECTIVE: The patient is resting comfortably in bed. She has no complaints at this time. OBJECTIVE: Vital Signs: Temperature 98.5 degrees, blood pressure 103/54, heart rate 70, respirations 22, O2 saturation 99% on 4 L nasal cannula. General: This is a morbidly obese female lying in bed in no acute distress. Heart: S1, S2 normal. Regular rate and rhythm. Lungs: Equal air entry bilaterally. No crackles, no rales. Abdomen: Positive bowel sounds. Soft, nontender, nondistended. Extremities: No edema, no cyanosis. Neuro: The patient is alert and oriented x3. LABS: Sodium 133, potassium 4.3, BUN 12, creatinine 0.5, glucose 116. White blood cell count 2.4, hemoglobin 9.7, hematocrit 30, platelets 62,000. ASSESSMENT AND PLAN: 1. Acute on chronic hypoxemic and hypercapnic respiratory failure. Continue with supplemental oxygen. 2. Massive ascites status post paracentesis. Stable. Continue on Lasix and Aldactone. 3. Liver cirrhosis secondary to nonalcoholic steatohepatitis. Aware. 4. Splenomegaly with portal hypertension. Aware. 5. Possible spontaneous bacterial peritonitis. Will change the patient to oral antibiotic therapy. 6. Pneumonia. Resolved. 7. Hepatic encephalopathy. Resolved. Continue on lactulose and rifaximin. 8. Morbid obesity. The patient has been counseled about weight loss. 9. Chronic thrombocytopenia. Stable. 10. Tobacco dependence. The patient has been advised to quit smoking. 11. Anxiety disorder. Continue on Klonopin. 12. Disposition. The patient has her home oxygen arranged however she is requesting a oxygen concentrator. Will discuss with Room Service Supervisor on Tuesday. cc: Susan Freed MD
[2018-09-03] MEDS: SYNTHROID PO SCH (06:45)
[2018-09-03] MEDS: NORCO-7.5 PO PRN ×3 (06:45→22:50)
[2018-09-03 07:16] LABS: HEMATOCRIT 30.1 % (37.0-47.0); HEMOGLOBIN 9.7 g/dL (12.0-16.0); MCH 31.6 PG (27-31); MCHC 32.2 g/dL (33-37); RBC 3.07 XMIL (4.2-5.4); RDW 17.9 % (11.5-14.5); WBC 2.66 X1000 (4.8-10.8)
[2018-09-03 07:22] LABS: ESTIMATED GFR > 60
[2018-09-03 07:24] LABS: BUN 13 mg/dL (8-22); CALCIUM 8.1 mg/dL (8.8-10.2); CHLORIDE 99 mmol/L (98-107); COSMO 276; CREATININE 0.5 mg/dL (0.5-0.9); GLUCOSE 109 mg/dL (70-104); POTASSIUM 4.3 mmol/L (3.5-5.1); SODIUM 138 mmol/L (136-145); TCO2 41 mmol/L (25-35)
[2018-09-03] MEDS: XIFAXAN PO SCH ×2 (09:12→22:49)
[2018-09-03] MEDS: NICODERM PATCH TD SCH (09:12)
[2018-09-03] MEDS: LACTULOSE PO SCH ×3 (09:13→22:54)
[2018-09-03] MEDS: MIRALAX PO SCH (09:13)
[2018-09-03] MEDS: ZITHROMAX PO SCH (09:14)
[2018-09-03] MEDS: CORGARD PO SCH (09:14)
[2018-09-03] MEDS: MAXIPIME 1 GM in NS 50 ML IV SCH ×2 (09:15→22:51)
[2018-09-03] MEDS: ALDACTONE PO SCH (09:19)
[2018-09-03] MEDS: NEURONTIN PO SCH ×2 (09:19→22:51)
[2018-09-03] MEDS: LASIX PO SCH (09:20)
[2018-09-03] MEDS: PRILOSEC PO SCH ×3 (09:20→22:49)
[2018-09-03] MEDS: MAG-OX PO SCH (09:21)
[2018-09-03] MEDS: COLACE PO SCH ×2 (09:21→22:52)
[2018-09-03] MEDS: KLONOPIN PO SCH ×2 (09:21→22:52)
[2018-09-03] MEDS: DUONEB (A & A) INH SCH ×2 (11:05→21:03)
--- NOTE | 2018-09-03 17:01 | PROGRESS NOTE ---
DATE: 09/03/2018 SUBJECTIVE: The patient is sitting up in bed. She states that she feels better today. No acute events noted overnight. OBJECTIVE: Vital Signs: Temperature 98.4 degrees, blood pressure 110/57, heart rate 73, respirations 16, O2 saturation is 98% on 4 L nasal cannula. General: This is a morbidly obese female sitting up in bed, in no acute distress. Heart: S1, S2 normal. Regular rate and rhythm. Lungs: Clear to auscultation bilaterally. No wheezing. No rales. No rhonchi. Abdomen: Positive bowel sounds. Soft, obese, nontender, nondistended. Extremities: Trace pedal edema. Neurologic: The patient is alert and oriented x4. LABS: White blood cell count 2.6, hemoglobin 9.7, hematocrit 30, platelets 58,000. Sodium 138, potassium 4.3, chloride 99, CO2 41, BUN 13, creatinine 0.5, glucose 109, calcium 8.1. ASSESSMENT AND PLAN: 1. Acute on chronic hypoxemic respiratory failure. Multifactorial. The patient has portable oxygen that has been arranged by director social. However, she is requesting an oxygen concentrator. We will discuss with director social tomorrow. 2. Massive ascites status post paracentesis. Stable. Continue on Lasix and Aldactone. The patient will follow up with Dr. Brady as outpatient. 3. Liver cirrhosis secondary to nonalcoholic steatohepatitis. Aware. 4. Splenomegaly with portal hypertension. Aware. 5. Possible spontaneous bacterial peritonitis. The patient will continue on oral antibiotic therapy. 6. Pneumonia. Resolved. 7. Hepatic encephalopathy. Continue on lactulose and rifaximin. 8. Morbid obesity. The patient has been counseled about weight loss and proper diet. 9. Chronic thrombocytopenia. Stable. 10. Tobacco dependence. The patient has been counseled about smoking cessation. 11. Anxiety disorder. Continue on Klonopin. 12. Disposition. Will plan to discharge the patient home tomorrow after arrangements have been made for oxygen concentrator. cc: Susan Freed MD
[2018-09-04] MEDS: NORCO-7.5 PO PRN (06:37)
[2018-09-04] MEDS: SYNTHROID PO SCH (06:38)
[2018-09-04] MEDS: DUONEB (A & A) INH SCH ×2 (06:53→07:33)
[2018-09-04 06:58] LABS: BASO# 0.01 X1000 (0.0-0.2); BASO% 0.3 % (0.0-0.8); EOS# 0.09 X1000 (0.0-0.7); EOS% 2.9 % (0.0-10.0); HEMOGLOBIN 11.1 g/dL (12.0-16.0); LYMPH# 0.58 X1000 (1.2-3.4); LYMPH% 18.5 % (20.5-51.1); MCH 31.4 PG (27-31); MCHC 32.6 g/dL (33-37); MONO# 0.32 X1000 (0.11-0.59); MONO% 10.2 % (1.7-9.3); MPV 11.3 FL (7.4-10.4); NEUT# 2.14 X1000 (1.4-6.5); NEUT% 68.1 % (42.2-75.2); PLT 74 X1000 (130-400); RBC 3.54 XMIL (4.2-5.4); WBC 3.14 X1000 (4.8-10.8)
[2018-09-04 07:11] LABS: AGAP 6; BUN 12 mg/dL (8-22); CALCIUM 8.2 mg/dL (8.8-10.2); CHLORIDE 99 mmol/L (98-107); COSMO 274; CREATININE 0.6 mg/dL (0.5-0.9); ESTIMATED GFR > 60; GLUCOSE 111 mg/dL (70-104); POTASSIUM 4.3 mmol/L (3.5-5.1); SODIUM 137 mmol/L (136-145); TCO2 32 mmol/L (25-35)
[2018-09-04 07:18] VITALS: BP 106/58
[2018-09-04] MEDS: NICODERM PATCH TD SCH (08:27)
[2018-09-04] MEDS: MAG-OX PO SCH (08:27)
[2018-09-04] MEDS: LASIX PO SCH (08:27)
[2018-09-04] MEDS: ZITHROMAX PO SCH (08:27)
[2018-09-04] MEDS: XIFAXAN PO SCH (08:27)
[2018-09-04] MEDS: NEURONTIN PO SCH (08:27)
[2018-09-04] MEDS: LACTULOSE PO SCH ×2 (08:27→08:35)
[2018-09-04] MEDS: CORGARD PO SCH (08:28)
[2018-09-04] MEDS: COLACE PO SCH (08:28)
[2018-09-04] MEDS: ALDACTONE PO SCH (08:28)
[2018-09-04] MEDS: PRILOSEC PO SCH (08:28)
[2018-09-04] MEDS: KLONOPIN PO SCH (08:28)
[2018-09-04] MEDS: MIRALAX PO SCH ×2 (08:29→08:35)
== END 2018-09-04 11:48 | disposition home health service (06) | DRG 432 ==
LOC: P.ED 16:19 → P.MEDSURG 22:47 → SUATTDRO 22:47 → 4N 08-26 16:54
PROVIDERS: ATTEND Internal Medicine
CPT/HCPCS: 49083; 71010; 71020; 71045; 71046; 71250; 74022; 74177; 76700; 80048; 80053; 80074; 80076; 80101; 80301; 80307; 80324; 80345; 80346; 80353; 80358; 80361; 80365; 81001; 82042; 82103; 82105; 82140; 82150; 82270; 82390; 82550; 82728; 82805; 83036; 83516; 83605; 83735; 83880; 83992; 84100; 84145; 84157; 84443; 84484; 85025; 85027; 85610; 85651; 85730; 86038; 86039; 86140; 86235; 86255; 87040; 87070; 87075; 87088; 87116; 87206; 88112; 89051; 93005; 94640; 94761; 94799; 97162; 97530; 99285; 99291; A9270; G0431; G0434; G0479; G0480; J0692; J1940; J2405; J7040; P9047; Q9967